=== PATIENT | female | born 1950 | race Caucasian/White ===

== ENCOUNTER 2017-03-22 07:44 | Day surgery (SDC) | payer OTHER ==
[~2017-03-22 07:44] MED LIST: LIDOCAINE W/ SODIUM BICARB 0.5 ML SYR ONE; Lactated Ringers 1,000 ML PRIMARY IV ONE
[2017-03-22] MEDS ORDERED: PROPOFOL 10 MG/1 ML (200 MG/20 ML) VIAL IV ONE (08:15)
[2017-03-22] MEDS ORDERED: Lactated Ringers 1,000 ML PRIMARY IV ONE (10:47)
[2017-03-22 11:23] VITALS: RESP 16; TEMP 97.8
== END 2017-03-22 11:19 | disposition home or self-care (01) ==
LOC: SDSC 07:44
PROVIDERS: ATTEND Ophthalmology
DX: H25.11 Age-related nuclear cataract, right eye (principal)
CPT/HCPCS: 66984; J2704; J7120

== ENCOUNTER 2017-04-27 11:18 | Emergency (ER) | payer OTHER ==
[2017-04-27] MEDS ORDERED: NORMAL SALINE 10 ML SYRINGE FLUSH IVP PRN (11:38)
--- NOTE | 2017-04-27 11:48 | PDOC ---
General Adult HPI - General Chief Complaint: Palpitations Stated Complaint: SHORTNESS OF BREATH, ARMS HEAVY, NEW ONSET A FIB Date Seen by Provider: 04/27/17 Time Seen by Provider: 11:25 Source: POSITIVE: Patient Exam Limitations: POSITIVE: No limitations Nurse's Notes Reviewed & Considered: Yes - History of Present Illness Initial Comment: The patient is a 66-year-old female who is brought to the emergency department by respiratory therapy. She reports that on Wednesday last week she had onset of dry heaves and vomiting. She had gone to the hospital at [facility] in [place]. She was hospitalized there overnight with dehydration and given IV fluids and nausea medication. In addition she reports that her blood pressure was elevated there and she was started on lisinopril prior to discharge. She had followed up at the [facility] this morning for hospital follow-up. At that time she relayed concerns of palpitations and shortness of breath. She was referred here to the hospital for an EKG, chest x-ray and d-dimer. Her d- dimer was elevated at 1.44 and her EKG showed atrial fibrillation with a rate in the 80s. She was subsequently referred here to the emergency room. She reports that she has had intermittent palpitations and shortness of breath since mid week last week. She denies any pain or swelling in her legs. She denies any current chest pain. She does continue to have some headache which has been ongoing since she became ill on Wednesday. She apparently had a head CT done in [place] that was normal. Her dry heaves and vomiting have ceased. She does not have any known history of heart disease. She states that her oxygen levels are always somewhat low however she does not wear oxygen at home. Have you received a tetanus shot in the past 10 years?: Unknown - Patient Home Medications Home Medications: Home Medications Multivitamin [Multi-Day Vitamins] 1 tab PO DAILY tab 11/12/15 Lisinopril 1 tab PO DAILY tab 04/27/17 - Patient Allergies Allergies/Adverse Reactions: Allergies Allergy/AdvReac Type Severity Reaction Status Date / Time Sulfa (Sulfonamide Allergy ITCHING Verified 04/27/17 11:25 Antibiotics) Past Medical History - heen HEENT History: Cataracts Cardiovascular History: Hypertension Respiratory History: Denies History Gastrointestinal History: Other (please comment) Additional Gastrointestinal History: GASTRIC BIPASS Genitourinary History: Denies History Endocrine History: Denies History Musculoskeletal History: Denies History Prosthesis or Implant: Yes (CORNELIO) Neurological History: Denies History Blood Disorders: Denies History Psychiatric History: Denies History Female Reproductive History: Denies History Obstetrical History: Denies History In Past Year Been Physically Harmed or Verbally Threatened: No History of MDRO: No Tobacco Use: Former Smoker Alcohol Use: Occasionally Substance Use Type: None Previous Surgical History: Yes Type / Date of Surgery: GASTRIC BIPASS, RIGHT THR, RIGHT KNEE SCOPE, CATARACTS Anesthesia Reactions: No Malignant Hyperthermia: No Significant Family History: No pertinent family hx Past Medical History Reviewed: Reviewed - No Changes ROS - Limitations ROS Limitations: No Limitations Constitution: DENIES: Chills, Fever Cardiovascular: REPORTS: Heart Palpitations, Blood Pressure Problem (Recently started on blood pressure medication). DENIES: Chest Pain, Edema Respiratory: REPORTS: Shortness Of Breath. DENIES: Cough Non Productive, Cough Productive Neurological: REPORTS: Headache, Other (She reports some heaviness in her arms) . DENIES: Numbness, Fainting, Weakness Gastrointestinal: REPORTS: Other (No current abdominal pain, nausea or vomiting , she was admitted on Wednesday night secondary to vomiting, dry heaves and dehydration) Eyes: REPORTS: Denies Symptoms ENT: REPORTS: Denies Symptoms Skin: DENIES: Rash General Adult Exam - General Appearance General Appearance: POSITIVE: Alert, Cooperative, No Acute Distress - HEENT HEENT: POSITIVE: Head Inspection Nml, Eyes Inspection Nml, Ears Inspection Nml, Pharynx Inspect. Nml, PERRL, EOMI - Neck Neck: POSITIVE: Normal Inspection. NEGATIVE: Lymphadenopathy - Respiratory Respiratory: POSITIVE: No Respiratory Distress, Breath Sounds Normal - Cardiovascular Cardiovascular: POSITIVE: Regular Rate & Rhythm, No Murmur Peripheral Pulses: Dorsalis-pedis (R): 2+, Dorsalis-pedis (L): 2+ - Abdomen Abdomen: Soft: (All Quadrants), Denies Tenderness: (All Quadrants), No Distention: (All Quadrants) - Skin Skin: POSITIVE: Normal Color, No Rash - Extremities Extremity: Normal ROM: (All Extremities), Normal Inspection: (All Extremities) Additional Extremities Details: No lower extremity edema - Neurological / Psychological Neurological: POSITIVE: Oriented X3, Motor Normal, Sensation Normal General Adult Progress - Results Reviewed by me Xrays/CTs/US Reviewed by me: Yes Discussed with Radiologist: Yes Radiology Findings: X-ray done prior to the patient coming to the emergency room was reviewed and reports showed normal heart size and normal lung hollings[place]. CTA revealed no evidence of PE, she did have an enhancing lesion in the left abdomen in the region of the adrenal that was incompletely characterized per radiologist. No other acute findings. Lab Results Reviewed: Yes Lab Results:: Laboratory Results 04/27/17 04/27/17 04/27/17 Range/Units 11:51 13:06 13:30 WBC 12.82 H (4.8-10.8) 10^3/uL RBC 5.23 (4.20-5.40) 10^6/uL Hgb 15.3 (12.0-16.0) g/dL Hct 48.1 H (37.0-47.0) % MCV 92.0 (81-99) FL MCH 29.3 (27-31) PG MCHC 31.8 L (33-37) g/dL RDW Std Deviation 51.3 H (39-50) fL RDW Coeff of Brionna 15.5 H (11.5-14.5) % Plt Count 325 (140-350) 10*3/uL MPV 9.9 (7.4-12.2) FL Immature Gran % (Auto) 0.2 (0-5) % Neut % (Auto) 71.0 (50-80) % Lymph % (Auto) 16.3 (10-50) % Cochran % (Auto) 10.7 (5-15) % Eos % (Auto) 0.9 (0-8) % Baso % (Auto) 0.9 (0-1) % Immature Gran # (Auto) 0.03 10*3/UL Neut # (Auto) 9.10 10*3/UL Lymph # (Auto) 2.09 10*3/uL Cochran # (Auto) 1.37 H (0.3-0.8) 10*3/UL Eos # (Auto) 0.11 10*3/UL Baso # (Auto) 0.12 10*3/UL WBC Morphology Comment Normal morphology (NORM) Plt Morphology Comment Normal morphology (NORM) RBC Morph Comment Normal morphology (NORM) Sodium 140 (135-145) meq/L Potassium 4.2 (3.8-5.2) meq/L Chloride 97 L (98-112) meq/L Carbon Dioxide 31 (23-33) meq/L Anion Gap 12 (5-20) BUN 16 (7-22) mg/dL Creatinine 0.8 (0.50-1.20) mg/dL Estimated GFR > 60 (>60 ml/min/1.73m(2)) BUN/Creatinine Ratio 20.00 (6-20) Glucose 132 H (78-110) mg/dL Calculated Osmolality 292.0 (267-292) mOsm/kg Calcium 9.2 (8.7-10.7) mg/dL Magnesium 2.3 (1.6-2.4) mg/dL Total Bilirubin 1.1 (0.3-1.2) mg/dL AST 33 (8-39) IU/L ALT 41 (9-52) IU/L Alkaline Phosphatase 126 (38-126) IU/L Troponin I 0.022 (< 0.040) ng/mL NT-Pro-B Natriuret Pep 626 H (0-125) PG/ML Total Protein 7.1 (6.1-8.0) g/dL Albumin 4.2 (3.5-4.8) g/dL Globulin 2.9 (2.50-4.10) g/dL Albumin/Globulin Ratio 1.40 (1.3-2.0) mg/g TSH 2.24 (0.2700-4.2000) uIU/mL Ur Collection Type Voided specimen Urine Color Yellow Urine Clarity Clear (CLEAR) Urine pH 7.0 (5.0-8.5) Ur Specific Shafter 1.010 (1.005-1.030) Urine Protein Negative (NEG) mg/dl Urine Glucose (UA) Negative (NEG) mg/dL Urine Ketones Trace (NEG) Urine Occult Blood Trace-intact H (NEG) Urine Nitrate Negative (NEG) Urine Bilirubin Negative (NEG) Urine Urobilinogen 0.2 (0.2) EU/dL Ur Leukocyte Esterase Negative (NEG) Urine RBC 2-5 (NONE) /hpf Urine WBC 0-1 (NONE) Ur Squamous Epith Cells Rare (NONE) Ur Renal Epithelial Cell None (NONE) Urine Crystals None Urine Bacteria None (NONE) Urine Casts None (NONE) Urine Mucus None (NONE) Urine Trichomonas None (NONE) Urine Yeast None (NONE) Ur Culture Indicated? Culture not set EKG Interpreted/Reviewed By Me:: Yes EKG Interpretation:: POSITIVE: Normal Sinus Rhythm, Normal Rate, Normal Intervals, Normal QRS, Normal ST/T, Other (PACs, the computer read the EKG is atrial fibrillation however it appears to be a sinus rhythm with PACs) - Patient's Progress MDM / ED Course: The computer reading on the EKG showed possible atrial fibrillation however on review of this it appears that she has a sinus rhythm with PACs. She was kept on the pharmacy operations coordinator here in the emergency room and remained in a sinus rhythm. Because of her elevated d-dimer and complaints of shortness of breath a CT PE protocol was ordered. In addition I did order other blood work. Her blood work was essentially unremarkable except for an elevated BNP. Oxygen saturations remain borderline mostly in the lower 90s with occasional dips into the upper 80s which the patient states has been ongoing for at least 3 [address] did not reveal any evidence of PE however did show a lesion in the left abdomen that was incompletely characterized. I did call and discuss the patient with Haroldo Gonzalez who is the nurse practitioner at the [facility] who has been caring for the patient. A CT scan of her abdomen and pelvis with IV contrast will be arranged as an outpatient to further characterize the lesion in her abdomen. In addition she was set up for a Holter monitor for evaluation of her complaints of palpitations although it appears this is most likely PACs. In addition she was set up for an echocardiogram. Her blood pressure was elevated here in the emergency department. She was just started on lisinopril and was advised to increase the dose to 20 mg daily. She will follow-up with the [facility] after all of this testing has been completed. She is advised return to the emergency room if she develops increased shortness of breath, chest pain, rapid heartbeat, any worsening or change in symptoms. - Consult Counseled: POSITIVE: Patient, RE: Lab Results, RE: Radiology Results, RE: DX, RE : Need for F/U Patient Care Time - Estimated PCT Patient Care Time (In Minutes): 40 Vital Signs - Recent Vital Signs Vital Signs: Vital Signs (Last 8 hours) Temp Pulse Resp BP Pulse Ox 04/27/17 13:34 94 20 173/97 89 04/27/17 11:41 98.7 F 90 16 148/96 87 - VS Reviewed Vital Signs Reviewed: Yes Discharge Clinical Impression: Palpitations, HTN (hypertension), Abdominal mass Discharge Disposition: Discharged to Home Condition: Stable Patient Instructions Given at Discharge: Palpitations (ED), Hypertension (ED) Additional Instructions: The CAT scan did not show any evidence of blood clot in your lungs and revealed normal heart size and normal lung hollings[place]. There was however a small mass which was not well visualized at the bottom of the images down in your abdomen. A CAT scan of your abdomen and pelvis with IV contrast has been ordered and is scheduled for May 05 at 11:00 here at the hospital to follow-up on this. Results will be sent to Haroldo Gonzalez at the [facility]. The cause of your palpitations is thought to be PACs however a Holter monitoring or will be ordered as well as an echocardiogram. The echocardiogram is an ultrasound and is scheduled for May 05 at 1 PM and will be followed up with the [facility] as well. You should not eat anything after 7:00 in the morning the day of these tests. Your blood pressure has been elevated. Continue lisinopril 20 mg a day. Follow-up with the [place] [facility] once all of this testing has been completed. Return to the emergency room if increased shortness of breath, rapid heartbeat, chest pain, increased abdominal pain, any worsening or change in symptoms. Follow Up With: Haroldo Gonzalez FNP [Primary Care Provider] -
[2017-04-27 11:52] VITALS: TEMP 98.7
[2017-04-27 11:54] LABS: BASOPHILS # (AUTO) 0.12 10*3/UL; BASOPHILS % (AUTO) 0.9 % (0-1); EOSINOPHILS # (AUTO) 0.11 10*3/UL; EOSINOPHILS % (AUTO) 0.9 % (0-8); HEMATOCRIT 48.1 % (37.0-47.0); HEMOGLOBIN 15.3 g/dL (12.0-16.0); LYMPHOCYTES # (AUTO) 2.09 10*3/uL; MEAN CORPUSCULAR HEMOGLOBIN 29.3 PG (27-31); MEAN CORPUSCULAR HGB CONC 31.8 g/dL (33-37); MEAN PLATELET VOLUME 9.9 FL (7.4-12.2); MONOCYTES # (AUTO) 1.37 10*3/UL (0.3-0.8); MONOCYTES % (AUTO) 10.7 % (5-15); RED BLOOD COUNT 5.23 10^6/uL (4.20-5.40)
[2017-04-27 11:56] LABS: PLATELET MORPHOLOGY COMMENT NORMAL MORPHOLOGY (NORM); RBC MORPHOLOGY COMMENT NORMAL MORPHOLOGY (NORM); WBC MORPHOLOGY COMMENT NORMAL MORPHOLOGY (NORM)
[2017-04-27 12:14] LABS: BLOOD UREA NITROGEN 16 mg/dL (7-22); CALCIUM 9.2 mg/dL (8.7-10.7); EST GLOMERULAR FILTRATION > 60 (>60 ml/min/1.73m(2)); MAGNESIUM 2.3 mg/dL (1.6-2.4); SERUM ALBUMIN 4.2 g/dL (3.5-4.8)
[2017-04-27 13:10] LABS: BILIRUBIN,URINE NEGATIVE (NEG); CLARITY,URINE CLEAR (CLEAR); COLOR,URINE YELLOW; GLUCOSE, URINE (UA) NEGATIVE (NEG); NITRATE,URINE NEGATIVE (NEG); OCCULT BLOOD,URINE Trace-intact (NEG); PROTEIN,URINE NEGATIVE (NEG); UROBILINOGEN,URINE 0.2 EU/dL (0.2)
[2017-04-27 13:15] LABS: SQUAMOUS EPITHELIAL CELL,UR RARE; URINE SAMPLE TYPE VOIDED SPECIMEN; WBC,URINE 0-1
--- NOTE | 2017-04-27 14:01 | DI ---
CT CTA CHEST NONCORONARY W/WO,04/27/2017 11:40 AM: Clinical History: Shortness of breath and elevated d-dimer. Previous Exam: None at this facility. Findings: Multiple helically acquired CT images are obtained through the chest following intravenous administra tion of 85 cc of Isovue 350, and demonstrate some subsegmental atelectasis in the lung bases. Pulmonary arteries are normal without truncation or filling defect to suggest pulmonary embolism. There is a small hiatal hernia and postsurgical changes at the gastroesophageal junction. Degenerative changes of the spine are noted. The upper abdomen is unremarkable although there is an enhancing area adjacent to the tail of the santana creas and the left adrenal gland which is only partially visible on this exam. This measures 3 cm in diameter. Impression: And. No evidence of pulmonary embolism. 2. 3 cm enhancing mass adjacent to the left adrenal gland not well evaluated on this exam as it is on ly partially visible. Consider CT abdomen pelvis with contrast for further evaluation.
[2017-04-27 15:12] VITALS: RESP 20
== END 2017-04-27 15:09 | disposition home or self-care (01) ==
LOC: ER 11:18
DX: R06.02 Shortness of breath (principal); R00.2 Palpitations; I10 Essential (primary) hypertension; R19.02 Left upper quadrant abdominal swelling, mass and lump; R51 Headache; R11.2 Nausea with vomiting, unspecified; R79.1 Abnormal coagulation profile
CPT/HCPCS: 71275; 80053; 81001; 81003; 83735; 83880; 84443; 84484; 85025; 99283

== ENCOUNTER → 2017-04-27 | Outpatient (CLI) | payer OTHER ==
--- NOTE | 2017-04-27 11:05 | EKG ---
[address] [address] Measurements Intervals [place] Rate: 82 P: [place]: 0 QRS: -14 QRSD: 72 T: 11 QT: 392 QTc: 431 Interpretive Statements WANDERING ATRIAL PACEMAKER WITH OCCASSIONAL PACs No previous ECG available for comparison Electronically Signed On 04-27-17 11:38:52 MDT by Murphy De La Garza [email or web address]
--- NOTE | 2017-04-27 13:06 | DI ---
PA /LATERAL CHEST X-RAY, 04/27/2017 10:27 AM : Clinical History: Unspecified dyspnea. Previous Exam: None at this facility. There is no acute soft tissue or bony abnormality. Heart size is normal. Lungs are clear. Mediastinal structures are normal. There are no pulmonary nodules. IMPRESSION: Normal chest x-ray.
== END ==
LOC: LAB 09:46
PROVIDERS: ATTEND Nurse Practitioner Family
DX: R06.00 Dyspnea, unspecified (principal); R00.2 Palpitations; I10 Essential (primary) hypertension; R51 Headache; Z95.0 Presence of cardiac pacemaker
CPT/HCPCS: 36415; 71020; 85379; 93005; 93010

== ENCOUNTER → 2017-05-05 | Outpatient (CLI) | payer OTHER ==
--- NOTE | 2017-05-05 11:56 | DI ---
CT ABD W/CN AND PELVIS W/CN,05/05/2017 10:30 AM: Clinical History: Left-sided abdominal mass. Previous Exam: CTA chest performed April 27, [address] bone density performed February 11, 2012 Findings: Multiple helically acquired CT images are obtained through the abdomen and pelvis following the intra venous administration of 95 cc of Isovue 300, and demonstrate a normal-appearing urinary bladder. The patient is status post right total hip arthroplasty. The uterus and ovaries are not well evaluated. There is no free air nor free fluid. A few colonic diverticula are noted without evidence of acute diverticulitis. Postsurgical changes ar e seen within the stomach at the gastroesophageal junction most consistent with bypass surgery. The adrenals, kidneys and pancreas are unremarkable. There is no mesenteric or retroperitoneal lympha denopathy. The appendix is normal. The lung bases are clear. Mild degenerative changes of the spine are seen worst at the L4/5 and the L5/S1 levels. Degenerative osteoarthritis of the left hip is noted. There is no free air nor free fluid nor associated abscess. There is no visible mass. There is a very small fat-containing umbilical hernia. The enhancing mass seen on the CT angiogram of the chest is again seen today within the retroperitone um. There is a fat plane between this and the pancreatic tail. There is also fat plane between this m ass and the adrenal gland as well as the fat plane between the mass and the celiac axis. This appears to be distinct from the splenic artery and celiac artery as well. Impression: 1. 2.7 cm mass with enhancement just posterior to the body of the pancreas and just anterior to the l eft adrenal gland. 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 This demonstrated a similar enhancement pat tern to the surrounding vasculature. In retrospect, this was seen on the sagittal images only of the lumbar spine MRI, and this demonstrated hyperintense T2 signal. There was no flow void within the mas s to suggest an aneurysm. Recommend tissue sampling for further evaluation. It may be martinez to obtain ultrasound just to prove that there is no flow within this mass to suggest an aneurysm. This may be amenable to percutaneous biopsy through posterior approach, but this will be technically very difficult.
== END ==
LOC: CT 10:39
PROVIDERS: ATTEND Personal Emergency Response Attendant
DX: R19.00 Intra-abdominal and pelvic swelling, mass and lump, unspecified site (principal); R74.8 Abnormal levels of other serum enzymes; R00.2 Palpitations; I10 Essential (primary) hypertension; R06.02 Shortness of breath; E66.9 Obesity, unspecified; I51.7 Cardiomegaly
CPT/HCPCS: 74177; 93306